=== PATIENT | male | born 1990 | race African-American/Black ===

== ENCOUNTER 2017-01-26 13:30 | Emergency (ER) | payer OTHER, MEDICAID ==
[~2017-01-26] VITALS: Ht 167.6 cm; Wt 66.0 kg
[2017-01-26] MEDS ORDERED: IBUPROFEN 600MG TABLET PO ONE (14:30)
[2017-01-26 14:40] VITALS: BP 137/90
== END 2017-01-26 15:51 | disposition home or self-care (01) ==
LOC: ER 13:37
DX: L03.114 Cellulitis of left upper limb (principal); F17.210 Nicotine dependence, cigarettes, uncomplicated; F12.10 Cannabis abuse, uncomplicated
CPT/HCPCS: 73080; 99284